=== PATIENT | female | born 1955 | race Caucasian/White ===

== ENCOUNTER → 2025-04-29 | Outpatient (CLI) | payer OTHER ==
[2025-04-29 09:23] VITALS: BP 145/79; O2SAT 98
[2025-04-29 10:37] VITALS: BP 149/81; O2SAT 97
[2025-04-29 10:48] VITALS: BP 146/82
[2025-04-29 10:54] VITALS: BP 146/82; O2SAT 97
[2025-04-29 11:06] VITALS: BP 142/83; O2SAT 96
[2025-04-29 11:19] VITALS: BP 148/82; O2SAT 99
== END | disposition home or self-care (01) ==
LOC: TOM 08:00
PROVIDERS: ATTEND Internal Medicine Hematology & Oncology
DX: C34.92 Malignant neoplasm of unspecified part of left bronchus or lung (principal)